=== PATIENT | female | born 1975 | race Caucasian/White ===

== ENCOUNTER → 2020-09-07 17:48 | Outpatient (CLI) | payer OTHER, SELFPAY | PROVIDERS: PCP Family Medicine; Referring Provider Family Medicine; Visit Provider Family Medicine | DX: Z20.828 Contact with and (suspected) exposure to other viral communicable diseases (principal) | CPT/HCPCS: 87635; C9803; U0003 ==

== ENCOUNTER → 2020-09-12 | Outpatient (CLI) | payer OTHER, SELFPAY | END | disposition home or self-care (01) | LOC: LABSPEC 09-14 13:57 | PROVIDERS: PCP Family Medicine; Referring Provider Family Medicine; Visit Provider Family Medicine | DX: Z20.828 Contact with and (suspected) exposure to other viral communicable diseases (principal) | CPT/HCPCS: 87635; C9803; U0003 ==

== ENCOUNTER → 2021-03-19 13:57 | Outpatient (CLI) | payer OTHER, SELFPAY ==
[2017-07-18 16:28] VITALS: BMI 29.5
[2021-03-19 14:51] LABS: Absolute Lymphocyte Count 2.37 X10^3/uL (0.83-4.51); Absolute Neutrophil Count 3.2 X10^3/uL (2.0-7.7); Basophil# 0.05 X10^3/uL; Basophil% 0.8 % (0-1); Eosinophil# 0.07 X10^3/uL; Eosinophils% 1.1 % (0-5); Hematocrit 37.2 % (37-47); Hemoglobin 12.6 g/dL (12.0-15.0); Lymphocyte # 2.37 X10^3/ul (0.83-4.51); Lymphocyte % 35.6 % (19-41); Mean Corp Hgb Conc 33.9 g/dL (32-36); Mean Corpuscular Hgb 30.4 pg (27.0-32.0); Mean Corpuscular Volume 89.6 fL (81-99); Mean Platelet Vol. 9.3 fl (6.2-12.0); Monocyte% 13.5 % (0-10); NRBC Flagged by Analyzer 0 % (0-5); Neutrophil # 3.18 X10^3/uL (2.7-7.7); Neutrophil % 47.6 % (47-70); Platelet Count 310 K/mm3 (150-450); RBC Distribution Width CV 12.1 % (11.6-14.6); RBC Distribution Width SD 39.5 fl (35.1-43.9); Red Blood Count 4.15 M/mm3 (4.2-5.4); White Blood Count 6.7 K/mm3 (4.4-11.0)
[2021-03-19 15:35] LABS: ALB/GLOB Ratio 0.9 RATIO (0.9-2.4); AST(SGOT) 23 U/L (15-37); Alanine Aminotransfer ALT/SGPT 22 U/L (13-56); Albumin, Serum 3.6 g/dL (3.2-5.0); Alkaline Phosphatase 63 U/L (45-117); Anion Gap 7 (5-15); BUN 8 mg/dL (7-18); BUN/Creat Ratio 11.1 RATIO (10-20); Calcium,Total 8.9 mg/dL (8.5-10.1); Chloride 102 mmol/L (98-107); Cholesterol 210 mg/dL (200); Creatinine, Serum 0.72 mg/dL (0.55-1.02); EST Glomerular Filtration Rate 93 mL/min (>60); Est Glom Filt Rate - Afr Amer 112 mL/min (>60); Globulin 3.9 g/dL (2.2-4.2); Glucose 89 mg/dL (74-106); High Density Lipoprotein 53 mg/dL; Potassium 3.2 mmol/L (3.5-5.1); Protein, Total 7.5 g/dL (6.4-8.2); Sodium Level 136 mmol/L (136-145); Thyroid Stim Hormone (TSH) 0.31 uIU/mL (0.358-3.74); Triglycerides 160 mg/dL; Very Low Density Lipoprotein 32 mg/dL (5-40)
[2021-03-22 12:46] LABS: Vitamin D,25 Hydroxy 28.4 ng/mL
== END ==
PROVIDERS: PCP Family Medicine; Visit Provider Family Medicine
DX: R53.82 Chronic fatigue, unspecified (principal); E55.9 Vitamin D deficiency, unspecified; Z13.29 Encounter for screening for other suspected endocrine disorder; Z13.220 Encounter for screening for lipoid disorders
CPT/HCPCS: 36415; 80053; 80061; 82306; 84443; 85025

== ENCOUNTER 2021-04-27 17:02 | Observation (INO) | payer OTHER, SELFPAY ==
[2021-04-27 17:03] VITALS: BP 135/76; PULSE 79; RESP 18; TEMP 36.3; O2SAT 96; BMI 29.2
[2021-04-27 18:25] LABS: Anion Gap 8 (5-15); BUN 14 mg/dL (7-18); BUN/Creat Ratio 18.1 RATIO (10-20); Chloride 103 mmol/L (98-107); Creatinine, Serum 0.77 mg/dL (0.55-1.02); EST Glomerular Filtration Rate 85 mL/min (>60); Est Glom Filt Rate - Afr Amer 103 mL/min (>60); Estimated Creatinine Clearance 75.52 ml/min; Glucose 85 mg/dL (74-106); Potassium 3.2 mmol/L (3.5-5.1); Sodium Level 140 mmol/L (136-145)
--- NOTE | 2021-04-27 18:40 | EDS_ITS ---
HPI History of Present Illness Chief Complaint: Cellulitis Informant: patient Narrative Narrative: Presents worsening cellulitis bilateral thighs. Started a small region 2 weeks ago right wrist and inner thigh. She is in a pool prior for which she states was not clean. Denies fevers or history of diabetes. Reports PCP called in Medrol Dosepak for which she finished however redness in the thighs developed and worsening. Saw PCP office yesterday started on Keflex and doxycycline. Redness has increased. In addition today noted diarrhea with bright red blood per rectum. She is on Eliquis for DVTs with a history of factor V Leiden. Denies abdominal pain. No history of colonoscopies. No nausea or vomiting. Denies any changes in soaps or detergents. Denies any new pets. PFSH [facility] Medical History (Updated 04/27/21 @ 23:[address] Fredy Nowak DO) DVT (deep venous thrombosis) Factor V deficiency Leg swelling Migraines Thyroid enlargement Home Medications apixaban [Eliquis] 5 mg PO BID #60 tab 07/18/17 [Rx Last Taken 04/27/21 08:00] cephalexin 500 mg PO 4X/DAY 04/27/21 [History Last Taken 04/27/21 14:00] doxycycline hyclate 100 mg PO BID 04/27/21 [History Last Taken 04/27/21 14:00] hydrochlorothiazide 25 mg PO DAILY 04/27/21 [History Last Taken 04/27/21 08:00] Allergy/AdvReac Type Severity Reaction Status Date / Time amoxicillin [From Augmentin] Allergy Rash Verified 04/27/21 17:06 clavulanic acid Allergy Rash Verified 04/27/21 17:06 [From Augmentin] Family History (Updated 04/27/21 @ 22:[address] Aleyda Quiñones MD) Mother Heart disease CHF Hypertension Father Hypertension HLD (hyperlipidemia) Surgical History (Updated 04/27/21 @ 22:[address] Aleyda Quiñones MD) H/O: hysterectomy History of hemorrhoidectomy History of repair of rectocele Hx of bladder repair surgery Social History (Updated 04/27/21 @ 22:[address] Aleyda Quiñones MD) household members: spouse Smoking Status: Former smoker how long ago did patient quit smoking: Quit 2011, prior 1 pack/week since teenager. alcohol intake: never substance use type: does not use ROS ROS ED Constitutional Constitutional ED: Denies chills, fever(s) or sweats Eyes Eyes: Denies change in vision ENT ENT ED: Denies dysphagia or sore throat Cardiovascular Cardiovascular: Denies chest pain, leg edema, palpitations or racing heartbeat Respiratory/Chest Respiratory/Chest: Denies cough, dyspnea or dyspnea on exertion Gastrointestinal Gastrointestinal: Reports diarrhea and other Details: Bright red blood per rectum ; Denies abdominal pain, nausea or vomiting Genitourinary Genitourinary ED: Denies dysuria, hematuria or urinary frequency Musculoskeletal Musculoskeletal: Denies back pain, extremity pain or neck pain Integumentary Reports rash; Denies wounds Neurologic Neurologic: Denies headache(s), paresthesias or weakness EXAM Physical Exam Const Vital Signs: 04/27/21 17:03 04/27/21 17:58 04/27/21 19:44 Temperature 97.4 F L 98.6 F Temperature Source Temporal Oral Pulse Rate 79 59 L Respiratory Rate 18 16 Respiratory Effort Normal Non-Labored Respiratory Pattern Normal Blood Pressure 135/76 H 111/58 L Blood Pressure Mean 95 75 Pulse Ox 96 98 Oxygen Delivery Method Room Air Room Air Positive well nourished and well developed General Appearance ED: well developed and NAD HEENT Reports moist mucous membranes normocephalic and atraumatic Eyes PERRL, EOMs intact bilaterally and conjunctivae normal General Eye ED: Yes normal appearance of both eyes Neck no lymphadenopathy and supple General: Negative for tenderness Chest Wall Chest: Negative for tenderness Resp normal respiratory effort and normal air movement Effort and Inspection: symmetric chest movement; Negative for respiratory distress Cardio regular rate, regular rhythm and no murmurs Peripheral Pulses: pulses 2+ throughout GI normal to inspection, nondistended, normoactive bowel sounds and non-tender Palpation: Negative for guarding or rebound tenderness present Back/Spine no CVA tenderness and no thoracic nor lumbar tenderness Extremity normal to inspection General Extremety ED: Negative for edema or tenderness General Extremity: Negative for edema Neuro oriented x3 and no sensory deficits noted Sensorium / Orientation: awake and alert Skin Skin Narrative: Lower extremities upper medial thighs bilaterally patches of erythema left greater than right. No extension into the genital regions. No crepitus of the skin. Nontender. Right wrist noted mild erythema with now abrasion small scabbing. There is no induration or active drainage. Nontender. MDM MDM MDM Narrative Medical decision making narrative: Patient nontoxic, vital signs are stable. Hemoccult testing sent which returned positive. No gross bleeding. Hemoglobin 13.6. I did order for stool studies which was she gave a small sample unable to for laboratory run. White count returned at 12.6. Potassium 3.2 magnesium added which was normal. Given oral potassium replacement. Her lactic acid is 0.8. Erythema was outlined by nursing. Patient failing outpatient therapy with antibiotics. She was covered with Zosyn and vancomycin. Discussed with hospitalist Dr. Quiñones for admission. Treat cellulitis and follow rectal bleeding. On Eliquis. Lab Data Attestation: I reviewed the patient's lab results. Labs: Laboratory Results - last 24 hr 04/27/21 04/27/21 04/27/21 17:41 17:41 18:50 WBC 12.6 H RBC 4.34 Hgb 13.6 Hct 40.0 MCV 92.2 MCH 31.3 MCHC 34.0 RDW Std Deviation 42.0 RDW Coeff of [place] 12.3 Plt Count 357 MPV 9.3 Neut % (Auto) Not Reportable Absolute Neuts (auto) 6.8 Absolute Lymphs (auto) 4.41 Total Counted 100 Neutrophils % (Manual) 52 Band Neutrophils % 2 Lymphocytes % (Manual) 35 Monocytes % (Manual) 9 Eosinophils % (Manual) 2 Basophils % (Manual) Not Reportable Diff Path Review May foll Platelet Estimate ADEQUATE RBC Morphology NORM C+C PT 12.3 INR 1.0 APTT 25.1 Sodium 140 Potassium 3.2 L Chloride 103 Carbon Dioxide 29.0 Anion Gap 8 BUN 14 Creatinine 0.77 Estim Creat Clear Calc 75.52 Est GFR (MDRD) Af Amer 103 Est GFR (MDRD) Non-Af 85 BUN/Creatinine Ratio 18.1 Glucose 85 Lactic Acid Calcium 9.0 04/27/21 18:50 WBC RBC Hgb Hct MCV MCH MCHC RDW Std Deviation RDW Coeff of [place] Plt Count MPV Neut % (Auto) Absolute Neuts (auto) Absolute Lymphs (auto) Total Counted Neutrophils % (Manual) Band Neutrophils % Lymphocytes % (Manual) Monocytes % (Manual) Eosinophils % (Manual) Basophils % (Manual) Diff Path Review Platelet Estimate RBC Morphology PT INR APTT Sodium Potassium Chloride Carbon Dioxide Anion Gap BUN Creatinine Estim Creat Clear Calc Est GFR (MDRD) Af Amer Est GFR (MDRD) Non-Af BUN/Creatinine Ratio Glucose Lactic Acid 0.8 Calcium Discharge Plan Dx/Rx/DC Orders Clinical Impression: Cellulitis, Hemorrhagic diarrhea Disposition Disposition: Acute Care Hospital [facility] Discharge Date/Time: 04/27/21 21:24
[2021-04-27 18:54] LABS: Hemoglobin 13.6 g/dL (12.0-15.0); Mean Corpuscular Hgb 31.3 pg (27.0-32.0); Mean Corpuscular Volume 92.2 fL (81-99); Mean Platelet Vol. 9.3 fl (6.2-12.0); POSITIVE COUNT YES; POSITIVE MORPHOLOGY YES; Platelet Count 357 K/mm3 (150-450); RBC Distribution Width CV 12.3 % (11.6-14.6); Red Blood Count 4.34 M/mm3 (4.2-5.4); White Blood Count 12.6 K/mm3 (4.4-11.0)
[2021-04-27 18:55] LABS: Differential Indicated MANUAL DIFF
[2021-04-27 18:59] LABS: Eosinophil 2 % (0-5); Lymphocyte 35 % (19-41); Monocyte 9 % (0-10); Neutrophil-Band 2 % (0-5); Total Cells Counted 100 (MANUAL DIFF)
[2021-04-27 19:00] LABS: Neutrophil-Segmented 52 % (47-70)
[2021-04-27 19:01] LABS: Platelet Estimate ADEQUATE (ADEQ); Red Cell Morphology NORM C+C NORMAL (NORM C&C)
[2021-04-27 19:03] LABS: Absolute Lymphocyte Count 4.41 X10^3/uL (0.83-4.51); Absolute Neutrophil Count 6.8 X10^3/uL (2.0-7.7)
[2021-04-27 19:18] LABS: Prothrombin Time (Protime)PT. 12.3 SECONDS (11.7-14.9)
[2021-04-27 19:19] LABS: Lactic Acid 0.8 mmol/L (0.4-1.9); Partial Thromboplast Time 25.1 Seconds (24.1-36.2)
[2021-04-27 19:44] VITALS: BP 111/58; PULSE 59; RESP 16; TEMP 37; O2SAT 98
[2021-04-27 20:40] LABS: Magnesium 1.9 mg/dL (1.6-2.6)
--- NOTE | 2021-04-27 20:52 | PCM.HP.STD ---
HPI - General General Date of Admission: 04/27/21 Date of Service: 04/27/21 Chief Complaint: LE cellulitis, not improving with outpatient oral abx, diarrhea with blood streaking. HPI Narrative The patient is a 45 y/o F w/ PMHx: Factor V Deficiency on eliquis, Former Tobacco use, Chronic venous insufficiency on HCTZ who presents to the [facility] ED on 04/27/21 with history of onset cellulitis bilateral upper thighs recently started on oral doxycycline and Keflex by PCP the day prior but consistently worsening despite oral antibiotic therapy prompting ED evaluation. In addition she notes recent onset of diarrhea since start of abx therapy with up to 10 episodes with blood streaking. She was actually initially on medrol dose pack 2 weeks ago as she had redness on her wrists and thighs, noted to have been swimming in an unsanitary pool with other individuals similarly covered considered possibly contact dermatitis. After her steroid regimen she had improvement of her wrist redness, but she had worsened redness of her thigh redness. Patient does report the redness to her thighs to be itching and tender to palpation. She does report that her diarrhea and lower abdominal cramping has subsided over the last several hours. Work-up in the ED included T 98.6, heart rate 59, BP 111/58, respiratory rate 16, 98% on room air, CBC with WC 12.6, hemoglobin 13.6, platelet 357 without marked shift, unremarkable coags, BMP with potassium 3.2 otherwise not marked appearing, lactic acid 0.8, magnesium 1.9, occult stool positive on anticoagulant apixaban therapy. [facility] Medical History (Updated 04/27/21 @ 22:[address] Aleyda Quiñones MD) DVT (deep venous thrombosis) Factor V deficiency Leg swelling Migraines Non-smoker Thyroid enlargement Home Medications apixaban [Eliquis] 5 mg PO BID #60 tab 07/18/17 [Rx Last Taken 04/27/21 08:00] cephalexin 500 mg PO 4X/DAY 04/27/21 [History Last Taken 04/27/21 14:00] doxycycline hyclate 100 mg PO BID 04/27/21 [History Last Taken 04/27/21 14:00] hydrochlorothiazide 25 mg PO DAILY 04/27/21 [History Last Taken 04/27/21 08:00] Allergy/AdvReac Type Severity Reaction Status Date / Time amoxicillin [From Augmentin] Allergy Rash Verified 04/27/21 17:06 clavulanic acid Allergy Rash Verified 04/27/21 17:06 [From Augmentin] Family History (Updated 04/27/21 @ 22:[address] Aleyda Quiñones MD) Mother Heart disease CHF Hypertension Father Hypertension HLD (hyperlipidemia) Surgical History (Updated 04/27/21 @ 22:[address] Aleyda Quiñones MD) H/O: hysterectomy History of hemorrhoidectomy History of repair of rectocele Hx of bladder repair surgery Social History (Updated 04/27/21 @ 22:[address] Aleyda Quiñones MD) household members: spouse Smoking Status: Former smoker how long ago did patient quit smoking: Quit 2011, prior 1 pack/week since teenager. alcohol intake: never substance use type: does not use ROS ROS Narrative Admission Review of Systems: CONSTITUTIONAL: No weight loss, fever, chills, + weakness or fatigue. HEENT: Eyes: No visual loss, blurred vision, double vision or yellow sclerae. Ears, Nose, Throat: No hearing loss, sneezing, congestion, runny nose or sore throat. SKIN: + erythema. CARDIOVASCULAR: No chest pain, chest pressure or chest discomfort, palpitations, edema, orthopnea, syncopal events. RESPIRATORY: No shortness of breath, cough or sputum, wheezing, hemoptysis. GASTROINTESTINAL: + Diarrhea with blood streaking, abdominal cramping. No anorexia, nausea, vomiting, melena. GENITOURINARY: No dysuria, frequency, urgency or retention. NEUROLOGICAL: No headache, dizziness, syncope, paralysis, ataxia, numbness or tingling in the extremities, focal weakness, change in bowel or bladder control, seizure. MUSCULOSKELETAL: No muscle, back pain, joint pain or stiffness. HEMATOLOGIC: + anemia, bleeding or bruising. LYMPHATICS: No enlarged nodes. No history of splenectomy. PSYCHIATRIC: No history of depression or anxiety. ENDOCRINOLOGIC: No reports of sweating, cold or heat intolerance. No polyuria or polydipsia. ALLERGIES: No history of asthma, hives, eczema or rhinitis. Vital Signs Vital Signs Vital Signs: 04/27/21 17:03 04/27/21 17:58 04/27/21 19:44 Temperature 97.4 F L 98.6 F Temperature Source Temporal Oral Pulse Rate 79 59 L Respiratory Rate 18 16 Respiratory Effort Normal Non-Labored Respiratory Pattern Normal Blood Pressure 135/76 H 111/58 L Blood Pressure Mean 95 75 Pulse Ox 96 98 Oxygen Delivery Method Room Air Room Air Weight Weight: 164 lb 14.492 oz Body Mass Index (BMI) 29.2 Physical Exam Narrative Physical Examination: General: Awake, alert, oriented x 3 and cooperative, seated upright in the ED bed in no apparent distress. Skin: Normal color, normal turgor, no icterus, no cyanosis except noted bilateral inner thigh mild focal regions of erythema, noted to be itchy and tender to palpation. HEENT: AT/NC, EOMI, PERRLA, MMM, no carotid bruits or JVD noted. Lungs: CTA bilaterally, moderate effort, mild decrease BL bases, no rales, ronchi or wheezing. Heart: Regular rate and rhythm; no gallop, rub audible. Abdomen: Soft, mild generalized discomfort to palpation, mildly distended, mildly hyperactive bowel sounds, no obvious HSM. Extremities: No cyanosis, clubbing, or edema. Neurological: Patient awake, alert, oriented x 3, cognitive function intact; pupils equally reactive to light and accommodation, cranial nerves II-XII grossly normal, moving all 4 extremities, no focal deficits, strength mildly global decrease secondary to acute presentation complaints. Psychiatric: Affect appears normal, no acute evidence of depressive or anxiety feelings. Results Lab / Micro Data Result Diagrams: 04/27/21 17:41 04/27/21 17:41 Labs: Laboratory Results - last 24 hr 04/27/21 04/27/21 04/27/21 17:41 17:41 18:50 WBC 12.6 H RBC 4.34 Hgb 13.6 Hct 40.0 MCV 92.2 MCH 31.3 MCHC 34.0 RDW Std Deviation 42.0 RDW Coeff of [place] 12.3 Plt Count 357 MPV 9.3 Neut % (Auto) Not Reportable Absolute Neuts (auto) 6.8 Absolute Lymphs (auto) 4.41 Total Counted 100 Neutrophils % (Manual) 52 Band Neutrophils % 2 Lymphocytes % (Manual) 35 Monocytes % (Manual) 9 Eosinophils % (Manual) 2 Basophils % (Manual) Not Reportable Diff Path Review May foll Platelet Estimate ADEQUATE RBC Morphology NORM C+C PT 12.3 INR 1.0 APTT 25.1 Sodium 140 Potassium 3.2 L Chloride 103 Carbon Dioxide 29.0 Anion Gap 8 BUN 14 Creatinine 0.77 Estim Creat Clear Calc 75.52 Est GFR (MDRD) Af Amer 103 Est GFR (MDRD) Non-Af 85 BUN/Creatinine Ratio 18.1 Glucose 85 Lactic Acid Calcium 9.0 Magnesium 04/27/21 04/27/21 18:50 Unknown WBC RBC Hgb Hct MCV MCH MCHC RDW Std Deviation RDW Coeff of [place] Plt Count MPV Neut % (Auto) Absolute Neuts (auto) Absolute Lymphs (auto) Total Counted Neutrophils % (Manual) Band Neutrophils % Lymphocytes % (Manual) Monocytes % (Manual) Eosinophils % (Manual) Basophils % (Manual) Diff Path Review Platelet Estimate RBC Morphology PT INR APTT Sodium Potassium Chloride Carbon Dioxide Anion Gap BUN Creatinine Estim Creat Clear Calc Est GFR (MDRD) Af Amer Est GFR (MDRD) Non-Af BUN/Creatinine Ratio Glucose Lactic Acid 0.8 Calcium Magnesium 1.9 Micro: Microbiology 04/27/21 19:35 Stool Occult Blood (GABE) - Final Stool Occult Blood Positive Assessment & Plan Assessment/Plan (1) Cellulitis: QUALIFIERS: Site of cellulitis: extremity Site of cellulitis of extremity: lower extremity Laterality: unspecified laterality Qualified Code(s): L03.119 - Cellulitis of unspecified part of limb (2) Hemorrhagic diarrhea: PLAN: The patient is a 45 y/o F w/ PMHx: Factor V Deficiency on eliquis, Former Tobacco use, Chronic venous insufficiency on HCTZ who presents to the [facility] ED on 04/27/21 with history of onset cellulitis bilateral upper thighs recently started on oral doxycycline and Keflex by PCP the day prior but consistently worsening despite oral antibiotic therapy prompting ED evaluation with additionally onset diarrhea with blood streaking, abdominal cramping. 1. BL Upper Thigh Extremity ? Cellulitis: Will admit to medical surgical floor, maintain on IV Rocephin and Vanc and de-escalate if MRSA screen negative, plan repeat CBC in AM, continue affected extremity elevation above heart when seated and in bed, monitor erythema outline with VS checks. 2. Recent Diarrhea with associated GI bleed, unclear etiology: Will obtain stool cultures and c-diff as well as ova/parasite, continue monitor I&Os, judiciously hydrate and initiate regimen if appropriate. Temporarily holding her eliquis. 3. Hypokalemia: Admission K+ 3.2, magnesium normal, supplementation given, repeat level in AM. 4. Hypertension: Continue home regimen including hydrochlorothiazide although given #3 may necessitate regimen alteration if further continued electrolyte changes but given concurrent GI losses suspect this is more the etiology, PRN hydralazine. 5. Factor V deficiency: We will continue to hold patient on Eliquis as noted, resume once bleeding assured resolution especially given history. 6. Chronic venous insufficiency: Sharif current care and she notes occasional compression stockings, encouraged consideration for Gamaliel wraps, will trial here. Did discuss diet importance with low sodium. 7. DVT prophylaxis: SCDs, defer any chemoprophylaxis given #2. Add back patient home Eliquis once appropriate. Charges/Coding Visit Charges Inpatient E&M: 21676 Init Hosp L3
[2021-04-27] MEDS: Potassium Chloride Oral Tablet 20 MEQ 40 MEQ PO (21:23)
[2021-04-27 21:40] VITALS: BP 124/82; PULSE 70; RESP 16; TEMP 37.1; O2SAT 98
[2021-04-27 21:48] VITALS: BMI 28.9
[2021-04-27 22:08] VITALS: BP 114/69; PULSE 62; RESP 20; TEMP 36.8; O2SAT 100
--- NOTE | 2021-04-27 23:18 | PCM.RX.CS ---
Consult Pharmacy has been consulted to manage selected antiobiotic: Vancomycin Type of Consult: New start Suspected Infection: Skin/Soft tissue Labs: Sodium 140 mmol/L (136-145) 04/27/21 17:41 Potassium 3.2 mmol/L (3.5-5.1) L 04/27/21 17:41 Chloride 103 mmol/L (98-107) 04/27/21 17:41 Carbon Dioxide 29.0 mmol/L (21.0-32.0) 04/27/21 17:41 Anion Gap 8 (5-15) 04/27/21 17:41 BUN 14 mg/dL (7-18) 04/27/21 17:41 Creatinine 0.77 mg/dL (0.55-1.02) 04/27/21 17:41 Est GFR (MDRD) Af Amer 103 mL/min (>60) 04/27/21 17:41 Est GFR (MDRD) Non-Af 85 mL/min (>60) 04/27/21 17:41 BUN/Creatinine Ratio 18.1 RATIO (10-20) 04/27/21 17:41 Glucose 85 mg/dL (74-106) 04/27/21 17:41 Microbiology: Microbiology 04/27/21 19:35 Stool Stool Occult Blood (GABE) - Final Occult Blood Positive Weight used for dosin kg Estimated Creatinine Clearance: 88 Goal Trough: 15-20 mcg/mL Pharmacy Plan for Drug Dosing: Pharmacy Service will continue to monitor and adjust dosing as required. Medications Vancomycin HCl 1,250 mg/ (Sodium Chloride) 275 mls @ 167 mls/hr IV Q12H BRIGETTE Discontinued Medications Vancomycin HCl 1,750 mg/ (Sodium Chloride) 535 mls @ 250 mls/hr IV X1 ONE Stop: 04/27/21 20:46 Last Admin: 04/27/21 20:26 Dose: 250 mls/hr Documented by: Follow-Up Labs: Trough Vancomycin Labs to be done on [date and time ordered]: 04/29 @ 0800
[2021-04-27] MEDS: DiphenhydrAMINE 50 MG/ML Syringe IV (23:43)
[2021-04-27] MEDS: 0.9% Saline Lock 10 ML Syringe IV (23:43)
[2021-04-27] MEDS: Famotidine 200 MG/20 ML MDV 20 MG in 0.9% Normal Saline (Pres. free 8 ML 300 MG IV (23:45)
[2021-04-27] MEDS: 0.9% Normal Saline 1,000 ML 100 ML IV (23:49)
[2021-04-28 01:51] LABS: M R Staph aureus DNA By PCR Negative (Negative); Probe Check PASS; Specimen Processing Control PASS
[2021-04-28 04:10] VITALS: BP 105/46; PULSE 56; RESP 16; TEMP 36.6; O2SAT 99
[2021-04-28] MEDS: 0.9% Saline Lock 10 ML Syringe IV ×2 (06:25→14:06)
[2021-04-28] MEDS: DiphenhydrAMINE 50 MG/ML Syringe IV ×2 (06:25→14:06)
[2021-04-28 07:44] LABS: Absolute Neutrophil Count 4.3 X10^3/uL (2.0-7.7); Basophil% 1.1 % (0-1); Eosinophil# 0.29 X10^3/uL; Eosinophils% 3.3 % (0-5); Hematocrit 35.7 % (37-47); Lymphocyte % 29.7 % (19-41); Mean Corp Hgb Conc 33.6 g/dL (32-36); Mean Corpuscular Hgb 31.3 pg (27.0-32.0); Mean Corpuscular Volume 93.2 fL (81-99); Monocyte# 1.11 X10^3/uL; Monocyte% 12.7 % (0-10); NRBC Flagged by Analyzer 0 % (0-5); Neutrophil # 4.26 X10^3/uL (2.7-7.7); Neutrophil % 48.6 % (47-70); Platelet Count 300 K/mm3 (150-450); RBC Distribution Width CV 12.8 % (11.6-14.6); RBC Distribution Width SD 43.8 fl (35.1-43.9); Red Blood Count 3.83 M/mm3 (4.2-5.4); White Blood Count 8.8 K/mm3 (4.4-11.0)
--- NOTE | 2021-04-28 08:16 | NURSING ---
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
[2021-04-28 08:19] LABS: ALB/GLOB Ratio 0.9 RATIO (0.9-2.4); AST(SGOT) 13 U/L (15-37); Alanine Aminotransfer ALT/SGPT 14 U/L (13-56); Albumin, Serum 2.8 g/dL (3.2-5.0); Alkaline Phosphatase 51 U/L (45-117); Anion Gap 5 (5-15); BUN 10 mg/dL (7-18); BUN/Creat Ratio 13.3 RATIO (10-20); Calcium,Total 7.9 mg/dL (8.5-10.1); Chloride 109 mmol/L (98-107); Creatinine, Serum 0.75 mg/dL (0.55-1.02); EST Glomerular Filtration Rate 88 mL/min (>60); Est Glom Filt Rate - Afr Amer 106 mL/min (>60); Estimated Creatinine Clearance 77.53 ml/min; Glucose 83 mg/dL (74-106); Potassium 3.7 mmol/L (3.5-5.1); Protein, Total 5.8 g/dL (6.4-8.2); Sodium Level 141 mmol/L (136-145)
[2021-04-28] MEDS: 0.9% Normal Saline 1,000 ML 100 ML IV (08:58)
[2021-04-28] MEDS: Famotidine 200 MG/20 ML MDV 20 MG in 0.9% Normal Saline (Pres. free 8 ML 333 MG IV (08:58)
[2021-04-28 10:10] VITALS: BP 107/46; PULSE 81; RESP 18; TEMP 37.6; O2SAT 99
[2021-04-28] MEDS: Ceftriaxone 1 GM/50 ML BAG IV (10:30)
[2021-04-28] MEDS: hydroCHLOROthiazide 25 MG Tablet PO (10:32)
--- NOTE | 2021-04-28 10:51 | NURSING ---
right wrist rash improved but still outlined-bilateral inner thigh rash is unchanged but the errythema around the rash has receeded from marked lines (on admission) there is a small 1x3 area of rash that is on left upper thigh that was not marked on admission (although pt states was there) and it also is still noticeable but no errythema or edema around the rash
--- NOTE | 2021-04-28 10:56 | NURSING ---
pt had no symptoms of redness in face, temperature change or SOB w/ most recent Vanc iv dose
--- NOTE | 2021-04-28 11:03 | CASEMGMT ---
JEOVANY GERARDO assessment: Face to Face with patient for initial transition planning/care coordination assessment. JEOVANY GERARDO introduced self and role at [facility], pt voices understanding and consents to assessment. Pt is sitting up in chair in no distress. Pt is A/Ox4 and answers all questions appropriately. Care providers, pharmacy, and demographics verified. Presentation: Cellulitis on thighs, started on po antibx with no relief Admitting dx: Cellulitis, failed OP PCP: Shruthi Specialists: None Preferred [facility]acy: [facility] Insurance: [facility] Prescription Benefit: [facility] Living Will/HPOA: Pt states does not have LW/HPOA and declines AD info. LNOK: Francisco Hassan, Living Arrangements: Pt states lives with /son in 1 story home and states no concerns at home. Pt states is independent with ADL's. Transportation: Pt states drives self and states no transportation concerns. DME/HHC: Pt states no current DME and no need for any further DME. Pt states no hx of SNF or HHC in the past. Pt states no concerns with going home at time of discharge. Pt works side [employer] and is self-employed. Pt states does not smoke cigarettes or drink ETOH. Pt states no further concerns/needs. CM to follow for any further discharge planning/needs. Advised pt to ask for CM if any further questions/concerns/needs arise, voices understanding. Pt Goal: Home Plan: Home [place] JEOVANY GERARDO
[2021-04-28 13:43] VITALS: O2SAT 96
[2021-04-28 15:39] VITALS: PULSE 80
--- NOTE | 2021-04-28 16:39 | PCM.DC ---
Discharge Instructions Diet Discharge Diet: No restrictions Activity Discharge Activity: Return to Normal Activity Dressing / Incision Call your doctor if you observe: Fever of 101 or Higher, Shortness of breath, Dizziness, Swelling in the ankles, Chest pain and Increased palpitations (irregular heartbeat) Follow Up Care Test Results: Test results from this visit will be discussed in further detail at your follow-up appointment, if applicable. Discharge Plan Admission Admit Date/Time: 04/27/21 21:08 Attending Provider: Omega Kebede Primary Care Provider: Eleno Hawkins Discharge Orders/Prescriptions Prescriptions: Continued Eliquis 5 MG tablet 5 mg PO BID Qty: 60 RF: 0 cephalexin 500 mg capsule 500 mg PO 4X/DAY RF: 0 hydrochlorothiazide 25 mg tablet 25 mg PO DAILY RF: 0 Discontinued doxycycline hyclate 100 mg tablet 100 mg PO BID RF: 0 Referrals / Follow Up: Eleno Hawkins MD [Primary Care Provider] - Disposition Disposition (needs filled in before D/C Order can be placed): Home, Self Care
--- NOTE | 2021-04-28 16:41 | DS.PCM_ITS ---
Providers Date of Admission: 04/27/21 Primary Care Physician: Dr. Eleno Hawkins MD Reason For Visit: CELLULITIS, FAILED OUTPATIENT TX, DIARRHEA W/ GI Diagnosis Discharge Diagnosis (1) Cellulitis: Status: Acute Code(s): L03.90 - Cellulitis, unspecified Qualifiers: Site of cellulitis: extremity Site of cellulitis of extremity: lower extremity Laterality: unspecified laterality Qualified Code(s): L03.119 - Cellulitis of unspecified part of limb (2) Hemorrhagic diarrhea: Status: Acute Code(s): R19.7 - Diarrhea, unspecified Medications at Discharge Home Medications Eliquis 5 mg PO BID #60 tab 07/18/17 cephalexin 500 mg PO 4X/DAY 04/27/21 hydrochlorothiazide 25 mg PO DAILY 04/27/21 Hospital Course Operations None Procedures None Summary of Care Provided Minutes Spent on Discharge: 40 Hospital Course: Per HPI: The patient is a 45 y/o F w/ PMHx: 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 In addition she notes recent onset of diarrhea since start of abx therapy with up to 10 episodes with blood streaking. She was actually initially on medrol dose pack 2 weeks ago as she had redness on her wrists and thighs, noted to have been swimming in an unsanitary pool with other individuals s imilarly covered considered possibly contact dermatitis. After her steroid regimen she had improvement of her wrist redness, but she had worsened redness of her thigh redness. Patient does report the redness to her thighs to be itching and tender to palpation. She does report that her diarrhea and lower abdominal cramping has subsided over the last several hours. Work-up in the ED included T 98.6, heart rate 59, BP 111/58, respiratory rate 16, 98% on room air, CBC with WC 12.6, hemoglobin 13.6, platelet 357 without marked shift, unremarkable coags, BMP with potassium 3.2 otherwise not marked appearing, lactic acid 0.8, magnesium 1.9, occult stool positive on anticoagulant apixaban therapy. Hospital Course: 1. Bilateral thigh cellulitis likely superinfection in the setting of dermatitis/diarrhea with [id number] female who presented to her PCPs office with a rash on her wrist and cellulitis. She was given a Medrol Dosepak 2 weeks ago for the rash on her wrist which has resolved however she developed cellulitis on her legs and an area but also has a rash with central clearing. She is only taken 1 day of her antibiotics prior to presenting to the hospital. She had multiple episodes of blood-streaked diarrhea. Hemoglobin is stable and she will need to have outpatient follow-up with repeat CBC in a few days. Her diarrhea has stopped and her ova parasite testing as well as her C. difficile testing were all negative. Could have been a reaction to the doxycycline. Her MRSA screen was negative and she was discharged back on Keflex to complete the course. This does look like she has bilateral dermatitis which could have gotten infected. Resume her Eliquis and monitor for stabilization of her hemoglobin as an outpatient. Bleeding was likely secondary to recurrent diarrhea. 2. Hypertension, factor V deficiency, chronic venous insufficiency are all chronic medical conditions which complicate her care. Her home medications were continued where appropriate Physical Exam Const alert, oriented x3 and no apparent distress General Appearance: cooperative HEENT normocephalic and moist oral mucous membranes Eyes PERRL, EOMs intact bilaterally and conjunctivae normal Neck supple and no JVD Resp normal respiratory effort, no retractions, no use of accessory muscles and clear to auscultation bilaterally Auscultation: Negative for crackles, rales, rhonchi or wheezes Cardio regular rate, regular rhythm, S1 normal heart sound, S2 normal heart sound and no murmurs GI soft to palpation, non-tender and non-distended; Negative for hepatosplenomegaly Extremity no clubbing, cyanosis or edema Skin no wounds Rashes: rashes noted Bilateral thighs patch red and central clearing Neuro no focal motor deficits and no sensory deficits noted Psych affect normal Appearance: appropriate Weight / BMI Weight Weight: 164 lb 14.492 oz Body Mass Index (BMI) 28.9 ABG / Lab / Microbiology Data Result Diagrams: 04/28/21 07:26 04/28/21 07:26 Laboratory: Laboratory Results - last 24 hr 04/27/21 04/27/21 04/27/21 17:41 17:41 18:50 WBC 12.6 H RBC 4.34 Hgb 13.6 Hct 40.0 MCV 92.2 MCH 31.3 MCHC 34.0 RDW Std Deviation 42.0 RDW Coeff of [place] 12.3 Plt Count 357 MPV 9.3 Immature Gran % (Auto) Neut % (Auto) Not Reportable Lymph % (Auto) [place] % (Auto) Eos % (Auto) Baso % (Auto) Absolute Neuts (auto) 6.8 Absolute Lymphs (auto) 4.41 Total Counted 100 Neutrophils % (Manual) 52 Band Neutrophils % 2 Lymphocytes % (Manual) 35 Monocytes % (Manual) 9 Eosinophils % (Manual) 2 Basophils % (Manual) Not Reportable Nucleated RBC % Diff Path Review May foll Platelet Estimate ADEQUATE RBC Morphology NORM C+C PT 12.3 INR 1.0 APTT 25.1 Sodium 140 Potassium 3.2 L Chloride 103 Carbon Dioxide 29.0 Anion Gap 8 BUN 14 Creatinine 0.77 Estim Creat Clear Calc 75.52 Est GFR (MDRD) Af Amer 103 Est GFR (MDRD) Non-Af 85 BUN/Creatinine Ratio 18.1 Glucose 85 Lactic Acid Calcium 9.0 Magnesium Total Bilirubin AST ALT Alkaline Phosphatase Total Protein Albumin Globulin Albumin/Globulin Ratio MRSA (PCR) 04/27/21 04/27/21 04/27/21 18:50 23:20 Unknown WBC RBC Hgb Hct MCV MCH MCHC RDW Std Deviation RDW Coeff of [place] Plt Count MPV Immature Gran % (Auto) Neut % (Auto) Lymph % (Auto) [place] % (Auto) Eos % (Auto) Baso % (Auto) Absolute Neuts (auto) Absolute Lymphs (auto) Total Counted Neutrophils % (Manual) Band Neutrophils % Lymphocytes % (Manual) Monocytes % (Manual) Eosinophils % (Manual) Basophils % (Manual) Nucleated RBC % Diff Path Review Platelet Estimate RBC Morphology PT INR APTT Sodium Potassium Chloride Carbon Dioxide Anion Gap BUN Creatinine Estim Creat Clear Calc Est GFR (MDRD) Af Amer Est GFR (MDRD) Non-Af BUN/Creatinine Ratio Glucose Lactic Acid 0.8 Calcium Magnesium 1.9 Total Bilirubin AST ALT Alkaline Phosphatase Total Protein Albumin Globulin Albumin/Globulin Ratio MRSA (PCR) Negative 04/28/21 04/28/21 07:26 07:26 WBC 8.8 RBC 3.83 L Hgb 12.0 Hct 35.7 L MCV 93.2 MCH 31.3 MCHC 33.6 RDW Std Deviation 43.8 RDW Coeff of [place] 12.8 Plt Count 300 MPV 9.0 Immature Gran % (Auto) 4.600 H Neut % (Auto) 48.6 Lymph % (Auto) 29.7 [place] % (Auto) 12.7 H Eos % (Auto) 3.3 Baso % (Auto) 1.1 H Absolute Neuts (auto) 4.3 Absolute Lymphs (auto) 2.60 Total Counted Neutrophils % (Manual) Band Neutrophils % Lymphocytes % (Manual) Monocytes % (Manual) Eosinophils % (Manual) Basophils % (Manual) Nucleated RBC % 0 Diff Path Review Platelet Estimate RBC Morphology PT INR APTT Sodium 141 Potassium 3.7 Chloride 109 H Carbon Dioxide 27.0 Anion Gap 5 BUN 10 Creatinine 0.75 Estim Creat Clear Calc 77.53 Est GFR (MDRD) Af Amer 106 Est GFR (MDRD) Non-Af 88 BUN/Creatinine Ratio 13.3 Glucose 83 Lactic Acid Calcium 7.9 L Magnesium Total Bilirubin 0.40 AST 13 L ALT 14 Alkaline Phosphatase 51 Total Protein 5.8 L Albumin 2.8 L Globulin 3.0 Albumin/Globulin Ratio 0.9 MRSA (PCR) Microbiology: Microbiology 04/27/21 09:05 Stool Lactoferrin - Final Stool Enteric Bacteriology - Final C. difficile DNA Amplification - Final 04/27/21 19:35 Stool Occult Blood (GABE) - Final Stool Occult Blood Positive Microbiology 04/27/21 09:05 Stool Stool Lactoferrin - Final 04/27/21 09:05 Stool Enteric Bacteriology - Final 04/27/21 09:05 Stool C. difficile DNA Amplification - Final 04/27/21 19:35 Stool Stool Occult Blood (GABE) - Final Occult Blood Positive D/C Instructions Discharge Diet: No restrictions Call your doctor if you observe: Fever of 101 or Higher, Shortness of breath, Dizziness, Swelling in the ankles, Chest pain and Increased palpitations (irregular heartbeat) Meaningful Use Info Meaningful Use Diagnoses (Choose all that apply): None applicable Discharge Plan Admission Admit Date/Time: 04/27/21 21:08 Attending Provider: Omega Kebede Primary Care Provider: Eleno Hawkins Discharge Orders/Prescriptions Prescriptions: Continued Eliquis 5 MG tablet 5 mg PO BID Qty: 60 RF: 0 cephalexin 500 mg capsule 500 mg PO 4X/DAY RF: 0 hydrochlorothiazide 25 mg tablet 25 mg PO DAILY RF: 0 Discontinued doxycycline hyclate 100 mg tablet 100 mg PO BID RF: 0 Referrals / Follow Up: Eleno Hawkins MD [Primary Care Provider] - Disposition Disposition (needs filled in before D/C Order can be placed): Home, Self Care Charges/Coding Visit Charges Inpatient E&M: 69123 Disch Hosp
[2021-04-28 17:17] VITALS: BP 114/61; PULSE 76; RESP 18; TEMP 36.6; O2SAT 96
[2021-05-01 11:58] LABS: Pathologist Review Reviewed
== END 2021-04-28 17:30 | disposition home or self-care (01) ==
LOC: ED 18:50 → MS3 21:41
PROVIDERS: Admitting Provider Family Medicine; Emergency Provider Emergency Medicine; PCP Family Medicine; Visit Provider Family Medicine
DX: L03.116 Cellulitis of left lower limb (principal); L03.115 Cellulitis of right lower limb; I87.2 Venous insufficiency (chronic) (peripheral); D68.2 Hereditary deficiency of other clotting factors; Z86.718 Personal history of other venous thrombosis and embolism; Z79.899 Other long term (current) drug therapy; Z79.01 Long term (current) use of anticoagulants; Z87.891 Personal history of nicotine dependence; R19.7 Diarrhea, unspecified; E87.6 Hypokalemia; I10 Essential (primary) hypertension
CPT/HCPCS: 36415; 80048; 80053; 82274; 83605; 83630; 83735; 85025; 85610; 85730; 87040; 87177; 87209; 87493; 87506; 87641; 96361; 96365; 96366; 96367; 96375; 96376; 97802; 99218; 99251; 99283; J7030; J7040; J7050; A4216; G0378; G0463; J0696; J3490

== ENCOUNTER → 2023-03-31 | Outpatient (CLI) | payer OTHER, SELFPAY ==
--- NOTE | 2023-03-31 14:53 | US_ITS ---
INDICATION: THYROMEGALY EXAMINATION: Ultrasound US Thyroid (eg thyroid, parathyroid, parotid) TECHNIQUE: Oliva scale and color doppler imaging was performed of the thyroid gland. COMPARISON: CTA chest July 18, 2017. FINDINGS: RIGHT THYROID LOBE: 5.6 x 2.2 x 2.2cm Homogeneous echotexture with mild hyperemia. [Multiple small colloid cysts up to 4-5mm in size, some with inspissated colloid, TI-RADS 1. LEFT THYROID LOBE: 4.6 x 1.8 x 1.8cm. Homogeneous echotexture with normal vascularity. [ 1. Lower pole 1.1 x 1.0 x 0.6 cm mixed cystic solid hypoechoic nodule wider than tall with smooth margins and no calcifications, TI RADS 3 2. Lateral lower thyroid 0.7 x 0.6 x 0.6 cm solid hypoechoic nodule wider than tall with smooth margins and no calcifications, TI-RAD 4 3. Upper thyroid 0.5 x 0.2 x 0.4 cm mixed cystic solid hypoechoic nodule wider than tall with smooth margins and no calcifications, TI RADS 3 ISTHMUS: 5.5 mm. No thyroid nodules are present. US/Thyroid IMPRESSION: Multinodular goiter 1.1 cm in size. No specific imaging follow-up recommended by ACR TI-RADS criteria. Electronically Signed: Ej Fox MD at 16:00 EDT ,
--- NOTE | 2023-03-31 14:53 | BI_ITS ---
MAMMOGRAPHY - BILATERAL SCREENING REASON FOR EXAM: Female, 47 years old. Routine annual screening examination. PERTINENT HISTORY: Non-contributory. TECHNIQUE: Digital bilateral breast miriam (3D mammographic acquisition) in the CC and MLO projections. 2-D mediolateral oblique (MLO) and craniocaudad (CC) views of both breasts were obtained. CAD: Full Field Digital Mammography with Computer Added Detection was performed. COMPARISON: Comparison is made with prior outside examination dated March 22, 2021. FINDINGS: Breast Composition: The breasts are extremely dense, which lowers the sensitivity of mammography. There are no dominant masses or suspicious calcifications. Small bilateral axillary lymph nodes. No other significant abnormalities are identified. There has been no significant change since the prior study. BI/SCRN MAMM (CAD)W/MIRIAM BILAT IMPRESSION: Stable bilateral screening mammogram. Yearly follow-up mammogram recommended. (A) ASSESSMENT CATEGORY: BIRADS Category 2: Benign. A letter regarding these results will be sent to the patient by the facility within 30 days. Approximately 10% of breast cancers are not detected by mammography. A normal mammogram should not delay biopsy of a clinically suspicious abnormality. [id number] Electronically Signed: Jayson Marquez MD at 15:42 EDT ,
== END | disposition home or self-care (01) ==
LOC: OPUS 14:51
PROVIDERS: PCP Family Medicine; Referring Provider Family Medicine; Visit Provider Family Medicine
DX: Z12.31 Encounter for screening mammogram for malignant neoplasm of breast (principal); E01.0 Iodine-deficiency related diffuse (endemic) goiter
CPT/HCPCS: 76536; 77063; 77067

== ENCOUNTER → 2024-07-13 | Outpatient (CLI) | payer OTHER, SELFPAY ==
--- NOTE | 2024-07-13 08:07 | BI_ITS ---
MAMMOGRAPHY - BILATERAL SCREENING REASON FOR EXAM: Female, 48 years old. Routine annual screening examination. PERTINENT HISTORY: Aunt with breast cancer. TECHNIQUE: Digital bilateral breast miriam (3D mammographic acquisition) in the CC and MLO projections. 2-D mediolateral oblique (MLO) and craniocaudad (CC) views of both breasts were obtained. CAD: Full Field Digital Mammography with Computer Added Detection was performed. COMPARISON: Comparison is made with prior study March 31, 2023. FINDINGS: Breast Composition: The breasts are extremely dense, which lowers the sensitivity of mammography. There are no dominant masses or suspicious calcifications. Stable benign-appearing bilateral axillary lymph nodes. No other significant abnormalities are identified. There has been no significant change since the prior study. BI/SCRN MAMM (CAD)W/MIRIAM BILAT IMPRESSION: Stable bilateral screening mammogram. Yearly follow-up mammogram recommended. (A) ASSESSMENT CATEGORY: BIRADS Category 2: Benign. A letter regarding these results will be sent to the patient by the facility within 30 days. Approximately 10% of breast cancers are not detected by mammography. A normal mammogram should not delay biopsy of a clinically suspicious abnormality. [id number] Electronically Signed: Jayson Marquez MD at 9:44 EDT ,
[2024-07-13 08:52] LABS: Absolute Lymphocyte Count 1.71 X10^3/uL (0.83-4.51); Absolute Neutrophil Count 3.3 X10^3/uL (2.0-7.7); Basophil# 0.04 X10^3/uL; Basophil% 0.7 % (0-1); Eosinophil# 0.03 X10^3/uL; Eosinophils% 0.5 % (0-5); Hematocrit 37.3 % (37-47); Hemoglobin 12.5 g/dL (12.0-15.0); Lymphocyte # 1.71 X10^3/ul (0.83-4.51); Lymphocyte % 28.1 % (19-41); Mean Corp Hgb Conc 33.5 g/dL (32-36); Mean Corpuscular Hgb 31.3 pg (27.0-32.0); Mean Corpuscular Volume 93.5 fL (81-99); Mean Platelet Vol. 9.3 fl (6.2-12.0); Monocyte# 0.93 X10^3/uL; Monocyte% 15.3 % (0-10); NRBC Flagged by Analyzer 0 % (0-5); Neutrophil # 3.31 X10^3/uL (2.7-7.7); Neutrophil % 54.3 % (47-70); Platelet Count 262 K/mm3 (150-450); RBC Distribution Width CV 12.1 % (11.6-14.6); RBC Distribution Width SD 42.2 fl (35.1-43.9); Red Blood Count 3.99 M/mm3 (4.2-5.4); White Blood Count 6.1 K/mm3 (4.4-11.0)
[2024-07-13 09:19] LABS: Anion Gap 8 (5-15); BUN 11 mg/dL (7-18); BUN/Creat Ratio 14.9 RATIO (10-20); Calcium,Total 9.1 mg/dL (8.5-10.1); Chloride 106 mmol/L (98-107); Cholesterol 203 mg/dL (200); Creatinine, Serum 0.74 mg/dL (0.55-1.02); EST Glomerular Filtration Rate 89 mL/min (>60); Est Glom Filt Rate - Afr Amer 107 mL/min (>60); Glucose 104 mg/dL (74-106); High Density Lipoprotein 70 mg/dL; Potassium 3.6 mmol/L (3.5-5.1); Sodium Level 139 mmol/L (136-145); Triglycerides 97 mg/dL; Very Low Density Lipoprotein 19 mg/dL (5-40)
== END | disposition home or self-care (01) ==
PROVIDERS: PCP Registered Nurse; Referring Provider Registered Nurse; Visit Provider Registered Nurse
DX: Z12.31 Encounter for screening mammogram for malignant neoplasm of breast (principal); Z13.220 Encounter for screening for lipoid disorders; R53.83 Other fatigue
CPT/HCPCS: 36415; 77063; 77067; 80048; 80061; 84443; 85025